=== PATIENT | female | born 1975 | race Caucasian/White ===

== ENCOUNTER 2018-11-17 12:32 | Outpatient (CLI) | payer OTHER | END 2018-11-17 12:53 | disposition home or self-care (01) | LOC: LAB 12:32 | DX: R23.3 Spontaneous ecchymoses (principal); J11.1 Influenza due to unidentified influenza virus with other respiratory manifestations; J20.0 Acute bronchitis due to Mycoplasma pneumoniae; J02.8 Acute pharyngitis due to other specified organisms ==

== ENCOUNTER → 2019-05-20 15:16 | Outpatient (CLI) | payer OTHER | END | disposition home or self-care (01) | LOC: LAB 15:16 | DX: J11.1 Influenza due to unidentified influenza virus with other respiratory manifestations (principal) ==

== ENCOUNTER → 2020-03-09 | Outpatient (CLI) | payer OTHER | END | disposition home or self-care (01) | LOC: PRENATAL 16:00 | PROVIDERS: ATTEND Obstetrics & Gynecology Maternal & Fetal Medicine | DX: O30.001 Twin pregnancy, unspecified number of placenta and unspecified number of amniotic sacs, first trimester (principal); O36.80X2 Pregnancy with inconclusive fetal viability, fetus 2; Z36.89 Encounter for other specified antenatal screening; O09.521 Supervision of elderly multigravida, first trimester; Z3A.08 8 weeks gestation of pregnancy ==

== ENCOUNTER → 2020-04-06 | Outpatient (CLI) | payer OTHER | END | disposition home or self-care (01) | LOC: PRENATAL 15:51 | PROVIDERS: ATTEND Obstetrics & Gynecology Maternal & Fetal Medicine | DX: O30.001 Twin pregnancy, unspecified number of placenta and unspecified number of amniotic sacs, first trimester (principal); O36.80X2 Pregnancy with inconclusive fetal viability, fetus 2; O09.521 Supervision of elderly multigravida, first trimester; O34.11 Maternal care for benign tumor of corpus uteri, first trimester; Z36.89 Encounter for other specified antenatal screening; Z3A.12 12 weeks gestation of pregnancy ==

== ENCOUNTER → 2020-05-25 | Outpatient (CLI) | payer OTHER | END | disposition home or self-care (01) | LOC: PRENATAL 14:45 | PROVIDERS: ATTEND Obstetrics & Gynecology Maternal & Fetal Medicine | DX: O26.872 Cervical shortening, second trimester (principal); O35.0XX2 Maternal care for (suspected) central nervous system malformation in fetus, fetus 2; O09.522 Supervision of elderly multigravida, second trimester; O34.12 Maternal care for benign tumor of corpus uteri, second trimester; O99.89 Other specified diseases and conditions complicating pregnancy, childbirth and the puerperium; O30.92 Multiple gestation, unspecified, second trimester; Z36.89 Encounter for other specified antenatal screening; Z3A.19 19 weeks gestation of pregnancy ==

== ENCOUNTER → 2020-06-22 | Outpatient (CLI) | payer OTHER | END | disposition home or self-care (01) | LOC: PRENATAL 15:00 | PROVIDERS: ATTEND Obstetrics & Gynecology Maternal & Fetal Medicine | DX: O26.842 Uterine size-date discrepancy, second trimester (principal); O26.872 Cervical shortening, second trimester; O30.92 Multiple gestation, unspecified, second trimester; Z36.89 Encounter for other specified antenatal screening; Z3A.23 23 weeks gestation of pregnancy ==

== ENCOUNTER → 2020-07-27 | Outpatient (CLI) | payer OTHER | END | disposition home or self-care (01) | LOC: PRENATAL 15:30 | PROVIDERS: ATTEND Obstetrics & Gynecology Maternal & Fetal Medicine | DX: O26.843 Uterine size-date discrepancy, third trimester (principal); O30.93 Multiple gestation, unspecified, third trimester; Z36.89 Encounter for other specified antenatal screening; Z3A.28 28 weeks gestation of pregnancy ==

== ENCOUNTER → 2020-08-25 | Outpatient (CLI) | payer OTHER | END | disposition home or self-care (01) | LOC: PRENATAL 15:30 | PROVIDERS: ATTEND Obstetrics & Gynecology Maternal & Fetal Medicine | DX: O26.843 Uterine size-date discrepancy, third trimester (principal); O30.93 Multiple gestation, unspecified, third trimester; Z36.89 Encounter for other specified antenatal screening; Z3A.32 32 weeks gestation of pregnancy ==